=== PATIENT | female | born 1980 | race Caucasian/White ===

== ENCOUNTER → 2018-11-18 09:48 | Day surgery (SDC) | payer OTHER ==
[~2018-11-18 09:48] MED LIST: Acetaminophen TAB* 325 MG PO PRN; Buffered Lidocaine 1% SYRIN* 1 ML/SYRINGE INTRADERM ONE; Bupivacaine 0.5%* 50 ML VIAL ONE; Dexamethasone IV* 4 MG/ML 1 ML (4 MG) IV SLOW PU ONE; Dexamethasone IV* 4 MG/ML 1 ML (4 MG) ONE; DiMENhydriNATE IV* 50 MG/ML VIAL IV PUSH PRN; Famotidine IV* 10 MG/ML 2 ML (20 mg) IV ONE; Famotidine IV* 10 MG/ML 2 ML (20 mg) ONE; HYDROcodone/ACETAMIN 5-325 MG* 1 TAB ONE; HYDROcodone/ACETAMIN 5-325 MG* 1 TAB PO PRN; HYDROmorphone INJ1* 1 MG/ML SYRINGE IV PRN; Ketorolac INJ* 30 MG/ML 1 ML VIAL IV PRN; Ketorolac INJ* 30 MG/ML 1 ML VIAL ONE; Lactated Ringers 1000 ML Bag* 1,000 ML IV SCH; Lidocaine 2% PF * 5 ML VIAL ONE; Midazolam* 1 MG/ML 2 ML VIAL (2 MG) ONE; Naloxone* 0.4 MG/ML 1 ML VIAL IV PRN; Ondansetron INJ* 2 MG/ML VIAL ONE; PROCHLORPERAZINE INJ 5 MG/ML 2 ML VIAL IV PRN; Propofol* 10 MG/ML 20 ML BTL ONE; ceFAZolin 2 GM PREMIX in ORs 2 GM/50 ML BAG IVPB ONE; fentaNYL* 50 MCG/ML 2 ML VIAL (100 MCG VIAL) ONE
[2018-11-18] MEDS: Buffered Lidocaine 1% SYRIN* 1 ML/SYRINGE INTRADERM ONE ×2 (10:18→10:19)
[2018-11-18] MEDS: fentaNYL* 50 MCG/ML 2 ML VIAL (100 MCG VIAL) IV PRN ×3 (12:23→14:42)
[2018-11-18 14:40] VITALS: BP 115/65
--- NOTE | 2018-11-18 20:26 | OP ---
DATE OF OPERATION: 11/18/18 - [facility] DATE OF : 76 SURGEON: Dr. Jono Jamil. REGULATORY AFFAIRS COORDINATOR: Maria De Jesus Bravo PA-C. PRE-OP DIAGNOSIS: Painful screw, right talus, from previous osteochondral defect. POST-OP DIAGNOSIS: Painful screw, right talus, from previous osteochondral defect. OPERATIVE PROCEDURE: Removal of screw, right talus. DESCRIPTION OF PROCEDURE: The patient was taken to the operating room, where we opened up posterior to the medial malleolus. The posterior tibial tendon was mobilized and subluxed anteriorly directly behind this by taking down 1 cm of the posterior deltoid. We were able to flex dorsally and locate the head of the screw in the medial talus. This was a small headless screw, so we used the Acumed set. When we placed the small hex-head screwdriver into the screw and rotated, the screwdriver itself broke off flush with the head of the screw. We then used a power marly to create a 2 to 3 mm opening around the screw head and used a small needle nose plier to remove the screw itself. We then irrigated thoroughly. We repaired the retinaculum of the posterior tibial tendon with some interrupted 2-0 Vicryl sutures. We used horizontal mattress stitches, 2-0 Vicryl for the subcu, geovanny for the skin, and a compression dressing, plaster splint was applied. [id number]/[facility] #: [id number] MTDD
== END | disposition home or self-care (01) ==
LOC: OR 09:48
PROVIDERS: ATTEND Orthopaedic Surgery
DX: T84.84XA Pain due to internal orthopedic prosthetic devices, implants and grafts, initial encounter (principal); Y83.1 Surgical operation with implant of artificial internal device as the cause of abnormal reaction of the patient, or of later complication, without mention of misadventure at the time of the procedure; F41.8 Other specified anxiety disorders; Z87.891 Personal history of nicotine dependence
CPT/HCPCS: 76000; 81025; 88300; J0690; J1100; J1885; J2250; J2405; J2704; J3010